=== PATIENT | female | born 2000 | race Caucasian/White ===

== ENCOUNTER 2018-08-12 13:40 | Emergency (ER) | payer MEDICAID ==
[2018-08-12] MEDS ORDERED: NS 1,000 ML IV ONE (14:15)
[2018-08-12] MEDS ORDERED: ONDANSETRON 4 MG/2 ML VIAL IVP ONE (14:15)
--- NOTE | 2018-08-12 14:25 | EDPHY ---
H & P Stated Complaint: Sneezing blood x 1 month, cough and vomiting blood x 1 week Time Seen by Provider: 08/12/18 13:51 HPI/ROS: CHIEF COMPLAINT: Sneezing blood, sinus infections, coughing blood, vomiting blood HISTORY OF PRESENT ILLNESS: 17-year-old female presents emergency department reporting that 2 months ago she had a head injury consisting of a statue which fell and hit her on the forehead. No loss of consciousness. Patient was seen by primary care physician the next day. Since that time she has had issues with ongoing sinus pressure and sinusitis and about a month ago started having frequent episodes of sneezing with blood in it. Patient received 2 rounds of antibiotics, amoxicillin and doxycycline, for sinus infections as well as taking Flonase nasal spray for nasal irritation without any improvement in her facial discomfort. 1 week ago she started running a low-grade fever of 100 associated with cough with bloody sputum and nausea and vomiting blood. She also reports dark stools. No chest pain or shortness of breath. No palpitations. No diarrhea. No urinary complaints. No lightheadedness or dizziness. REVIEW OF SYSTEMS: A comprehensive 10 system review of systems was reviewed and is otherwise negative aside from elements mentioned in the history of present illness and medical decision making. PAST MEDICAL HISTORY: Migraines. SOCIAL HISTORY: Nonsmoker. VITAL SIGNS: see nurse's notes. Hypertensive at 156/93. GENERAL: Well-developed, well-nourished, in no acute distress. Looks well. Alert. Conversant. Does not seem congested. No coughing or sneezing during my examination. HEENT: Atraumatic Eyes: PERRL, EOMI, no conjunctival injection. Ears: TM clear bilaterally. Frontal sinus tenderness to percussion. Nose: No discharge. No dried blood noted. No epistaxis. Mouth: moist mucous membranes. Pharynx: No posterior pharyngeal blood. No erythema, no exudates , no swelling, no abscess. Uvula is midline. NECK: Supple, no adenopathy, no meningismus, no tenderness. Negative Kernig's and Brudzinski's. LUNGS: Clear to auscultation bilaterally, no wheezes, rhonchi or rales. CARDIAC: Regular rate and rhythm, no rubs, murmurs or gallops. ABDOMEN: Soft, mild epigastric discomfort, no guarding or rebound. Normal bowel sounds. RECTAL: No hemorrhoids, nontender, no stool in the vault. Guaiac negative. BACK: Mild bilateral CVA tenderness. EXTREMITIES: Normal, no edema, FROM. NEURO: Alert and oriented, grossly nonfocal. SKIN: Warm and dry, no rash. PSYCHIATRIC: Normal mentation, no agitation. 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 2014? no residual symptoms Constitutional: Initial Vital Signs Temperature (C) 37 C 08/12/18 13:49 Heart Rate 98 08/12/18 13:49 Respiratory Rate 16 08/12/18 13:49 Blood Pressure 156/93 H 08/12/18 13:49 O2 Sat (%) 94 08/12/18 13:49 O2 Delivery Mode Room Air Allergies/Adverse Reactions: diphenhydramine [From Benadryl] Allergy (Verified 08/12/18 13:54) Pt reports "skin is crawling" eletriptan [From Relpax] Allergy (Verified 08/12/18 13:54) Pt reports "stroke" Home Medications: Medication Instructions Recorded Azithromycin [Zithromax] 250 mg PO DAILY #6 tab 08/12/18 Bc Pill 08/12/18 Ondansetron Odt [Zofran Odt 4 mg 4 mg PO Q6 PRN #8 tab 08/12/18 (RX)] Medical Decision Making - Diagnostics Imaging Results: Imaging Impressions Chest X-Ray 08/12/18 14:15 Impression: No acute cardiopulmonary process. Head CT 08/12/18 14:15 Impression: No acute intracranial findings. Findings discussed with Shayna Mcmanus MD 08/12/2018 at 14:44. Imaging: Discussed imaging studies w/ call or contact centre manager Radiologist, I viewed and interpreted images myself ED Course/Re-evaluation: Patient's head CT demonstrates no fractures, no acute sinusitis. Chest x-ray is normal. Stool was guaiac negative. CBC is within normal limits, actually a bit elevated. Electrolytes were remarkable for potassium 2.9. However, this was rechecked on i Stat at 3.5. At this point I believe the patient should follow up with [facility]. I have also asked her to keep track of her fever, begin using Flonase nasal spray again, and use a nonsedating antihistamine to help with sneezing. Please see the discharge instructions for further information. Differential Diagnosis: Differential diagnoses for the patient's symptom complex was considered including but not limited to basilar skull fracture, CSF leak, sinusitis, upper respiratory infection, swallowed blood, hematemesis from infection or bronchitis. - Data Points Laboratory Results: 08/12/18 14:39 POC Sodium 144 mEq/L mEq/L (135-145) POC Potassium 2.9 mEq/L L mEq/L (3.3-5.0) POC Chloride 103.0 mEq/L mEq/L (97-110) POC Total CO2 24 mEq/L mEq/L (22-31) POC BUN 9 mg/dL mg/dL (7-23) POC Creatinine 0.6 mg/dL mg/dL (0.6-1.0) POC Glucose 87 mg/dL mg/dL (70-100) POC Calcium 9.6 mg/dL mg/dL (8.5-10.4) Medications Given: Discontinued Medications Sodium Chloride (Ns) 1,000 mls @ 0 mls/hr IV ONCE ONE; Wide Open PRN Reason: Protocol Stop: 08/12/18 14:16 Last Admin: 08/12/18 14:31 Dose: 1,000 mls Ondansetron HCl (Zofran) 4 mg IVP EDNOW ONE Stop: 08/12/18 14:16 Last Admin: 08/12/18 14:32 Dose: 4 mg Point of Care Test Results: CBC CBC Collection Date 08/12/18 CBC Collection Time 14:21 WBC 7.3 RBC 5.61 HGB 16.4 HCT 46.9 PLT 406 Neut # 4.6 Neut 63.0 LYMPH # 2.3 LYMPH 31.8 Other WBC # 0.4 Other WBC 5.2 MCV 83.6 Chemistry 08/12/18 14:39 POC Sodium 144 mEq/L mEq/L (135-145) POC Potassium 2.9 mEq/L L mEq/L (3.3-5.0) POC Chloride 103.0 mEq/L mEq/L (97-110) POC Total CO2 24 mEq/L mEq/L (22-31) POC BUN 9 mg/dL mg/dL (7-23) POC Creatinine 0.6 mg/dL mg/dL (0.6-1.0) POC Glucose 87 mg/dL mg/dL (70-100) POC Calcium 9.6 mg/dL mg/dL (8.5-10.4) Occult Blood Occult Blood Collection Date 08/12/18 Occult Blood Collection Time 14:15 Occult Blood Result Negative/Negative Departure - Departure Disposition: Home, Routine, Self-Care Clinical Impression: Sneezing, History of hematemesis, History of hemoptysis Condition: Good Instructions: Fluticasone (Into the nose), Hemoptysis (ED), Hematemesis (ED) Additional Instructions: 1. Please obtain Flonase nasal spray and use this as directed for the next week. 2. Please obtain a nonsedating antihistamine like loratadine (claritin) and take this as directed for the next 2 weeks to help with sinus drainage. 3. If you continued to have a significant cough and low-grade fever with a cough productive of greenish discharge or blood, you may begin taking the azithromycin prescription. 4. Please use Tylenol as needed for body aches and fever. 5. Please check your temperature in order to document fevers over 100.1. 6. If you develop recurrent vomiting with blood, please return to the emergency department. I would encourage you to start an yaou-juh-[id number] prescription for Prilosec to help with any gastric irritation from your postnasal drip. 7. Okay to use Zofran as needed for any ongoing nausea. 8. Please follow up with Ear Nose and Throat doctor. You have been given referral to Dr. Raz Conner. [facility] is also a large group in area. Be sure that they are aware that this is an emergency department follow-up visit. Referrals: JESSA WARD [Primary Care Provider] - As per Instructions Raz Conner MD [Medical Doctor] - As per Instructions Prescriptions: Azithromycin [Zithromax] 250 mg PO DAILY #6 tab Ondansetron Odt [Zofran Odt 4 mg (RX)] 4 mg PO Q6 PRN #8 tab PRN Reason: Nausea
[2018-08-12 15:57] VITALS: BP 121/78
== END 2018-08-12 15:47 | disposition home or self-care (01) ==
LOC: CED 13:40
DX: K92.0 Hematemesis (principal); R06.7 Sneezing; R05 Cough; E86.9 Volume depletion, unspecified; Z87.828 Personal history of other (healed) physical injury and trauma
CPT/HCPCS: 70450-PO; 71046-PO; 80048-PO; 82435-PO; 82565-PO; 82947-PO; 84132-PO; 84295-PO; 84520-PO; 85014-PO; 96374; J2405

== ENCOUNTER 2018-10-05 11:15 | Emergency (ER) | payer MEDICAID ==
[2018-10-05] MEDS ORDERED: NS 1,000 ML IV ONE (12:06)
[2018-10-05] MEDS ORDERED: KETOROLAC 15 MG/1 ML SDV IVP ONE (12:07)
[2018-10-05] MEDS ORDERED: ASPIRIN 81 MG CHEWABLE TAB PO ONE (12:07)
[2018-10-05] MEDS ORDERED: AMPICILLIN SODIUM 2 GM in NS 100 ML IV ONE (12:13)
[2018-10-05] MEDS ORDERED: ONDANSETRON 4 MG/2 ML VIAL IVP ONE (12:13)
--- NOTE | 2018-10-05 13:05 | EDPHY ---
H & P Stated Complaint: chest pain,dyspnea for 1 day Time Seen by Provider: 10/05/18 11:41 HPI/ROS: This patient reports abrupt onset of pleuritic chest pain last night with ongoing pleuritic pain since that time 7/10 intensity when she takes deep breath described as substernal in bilateral in location. She has associated mild dyspnea. She also feels slight lightheadedness/dizziness since the onset of symptoms. She reports a deep breath also triggers a dry cough. In addition she reports ongoing UTI symptoms for over a week now. She was initially on Keflex and had ongoing symptoms including some flank pain that persists bilaterally and dysuria. She was switched to Macrobid 2 days ago due to lack of response. I reviewed the urine culture from her initial visit and it is growing enterococcus-60,000 colonies per high-power field. Her mother drove her here by private vehicle for evaluation of the symptoms. She has not taken any analgesics so far this morning. She also complains of associated mild to moderate nausea today. ROS: Constitutional: No recent fevers. No other constitutional symptoms HEENT: No recent Cold symptoms or other complaints Pulmonary: As per HPI. No hemoptysis recently. Cardiovascular: Mild lightheadedness. She also complains of leg pain left more than right over the past couple days. GI: No abdominal pain except for suprapubic discomfort that she has had since the onset of her UTI. : Ongoing dysuria persists. She also describes moderate 5/10 flank pain bilaterally. Integumentary: No skin rash Neuro: No complaints 10 point review of symptoms is performed and otherwise negative with exception of pertinent positives and negatives listed in HPI and ROS Source: Patient Exam Limitations: No limitations - Personal History LMP (Females 10-55): 22-28 Days Ago Current Tetanus Diphtheria and Acellular Pertussis (TDAP): Yes Tetanus Vaccine Date: within 10 years - Medical/Surgical History Hx Asthma: No Hx Chronic Respiratory Disease: No Hx Diabetes: No Hx Cardiac Disease: No Hx Renal Disease: No Hx Cirrhosis: No Hx Alcoholism: No Hx HIV/AIDS: No Hx Splenectomy or Spleen Trauma: No Other PMH: Concussion, migraines, stroke from rxn to relpax 2013? no residual symptoms, UTI's - Family History Significant Family History: No pertinent family hx - Social History Smoking Status: Former smoker Alcohol Use: Rarely Drug Use: None - Physical Exam Exam: General Appearance: Pleasant 18-year-old female Alert, no distress. Eyes: Pupils equal and round no pallor or injection. ENT, Mouth: Mucous membranes moist. Respiratory: Faint expiratory wheeze only notable when she coughs. Cardiovascular: Regular rate and rhythm. No murmur gallop rub. The patient has left calf tenderness and a positive Homans exam. Gastrointestinal: Mild suprapubic tenderness with no guarding or rebound Neurological: GCS 15 with no focal deficits. Skin: Warm and dry, no rashes. Musculoskeletal: Neck is supple nontender. Extremities are symmetrical, full range of motion. Psychiatric: Mood and affect normal DIFFERENTIAL DIAGNOSIS: After history and physical exam differential diagnosis was considered for PE, DVT, bronchitis, pleurisy, pericarditis, pyelonephritis Constitutional: Initial Vital Signs Temperature (C) 36.7 C 10/05/18 11:31 Heart Rate 106 H 10/05/18 11:31 Respiratory Rate 16 10/05/18 11:31 Blood Pressure 145/95 H 10/05/18 11:31 O2 Sat (%) 94 10/05/18 11:31 O2 Delivery Mode Room Air O2 (L/minute) 2 Allergies/Adverse Reactions: diphenhydramine [From Benadryl] Allergy (Verified 10/05/18 11:30) Pt reports "skin is crawling" eletriptan [From Relpax] Allergy (Verified 10/05/18 11:30) Pt reports "stroke" Home Medications: Medication Instructions Recorded Bc Pill 08/12/18 Ondansetron Odt [Zofran Odt 4 mg 4 mg PO Q6 PRN #8 tab 08/12/18 (RX)] Albuterol Hfa Anes Only [Proair 2 puffs IH Q4 PRN #1 mdi 10/05/18 Hfa Icu (*)] Ondansetron Odt [Zofran Odt] 4 - 8 mg PO Q4PRN PRN #4 tab 10/05/18 Medical Decision Making - Diagnostics EKG Interpretation: 12 lead EKG performed shortly after arrival indication chest pain rule out right heart strain or other abnormalities Performed at 11:47 a.m. Sinus rhythm at 82 Intervals: Normal throughout [place]: Normal throughout Overall assessment: Normal EKG Imaging Results: Imaging Impressions Chest X-Ray 10/05/18 12:26 Impression: Normal chest. Extremity Venous Study 10/05/18 13:00 Impression: No deep venous thrombosis left leg. Results called to Dr. Vinny Crane at 3:00 PM Two view chest x-ray is normal by my interpretation Imaging: I viewed and interpreted images myself ED Course/Re-evaluation: IV normal saline bolus Aspirin p. O. Toradol IV Given positive enterococcus culture treated with IV ampicillin Review of labs reveals normal CBC and basic metabolic panel. D-dimer is 317. Urinalysis reveals trace positive leuks on POC testing. In considering pretest probability this patient on oral contraceptives with left leg tenderness positive Homans will proceed with Doppler ultrasound for further evaluation. Doppler ultrasound lower extremities negative Discussion: This patient's presentation is most consistent with URI versus mild bronchitis with dry cough and chest wall tenderness. Given the risk factor of control pills we pursued a workup. She also had mild dyspnea. Her pain improved with NSAIDs here. Treated her with a dose of ampicillin due to CVA tenderness and ongoing UTI. She will continue her Macrobid antibiotic and follow up with primary care physician with plan to use NSAIDs for chest wall pain albuterol inhaler for cough if needed. She understands need to return to the emergency department should she develop worsening symptoms despite the treatment plan. - Data Points Laboratory Results: 10/05/18 12:06 POC Sodium 140 mEq/L mEq/L (135-145) POC Potassium 4.1 mEq/L mEq/L (3.3-5.0) POC Chloride 106.0 mEq/L mEq/L (97-110) POC Total CO2 25 mEq/L mEq/L (22-31) POC BUN 6 mg/dL L mg/dL (7-23) POC Creatinine 1.0 mg/dL mg/dL (0.6-1.0) POC Glucose 119 mg/dL H mg/dL (70-100) POC Calcium 9.2 mg/dL mg/dL (8.5-10.4) Medications Given: Discontinued Medications Aspirin (Aspirin) 324 mg PO EDNOW ONE Stop: 10/05/18 12:08 Last Admin: 10/05/18 12:18 Dose: 324 mg Sodium Chloride (Ns) 1,000 mls @ 0 mls/hr IV ONCE ONE; Wide Open PRN Reason: Protocol Stop: 10/05/18 12:07 Last Admin: 10/05/18 12:14 Dose: 1,000 mls Ampicillin Sodium 2 gm/ Sodium (Chloride) 110 mls @ 220 mls/hr IV EDNOW ONE PRN Reason: Protocol Stop: 10/05/18 12:42 Last Admin: 10/05/18 12:34 Dose: 110 mls Ketorolac Tromethamine (Toradol) 15 mg IVP EDNOW ONE Stop: 10/05/18 12:08 Last Admin: 10/05/18 12:21 Dose: 15 mg Ondansetron HCl (Zofran) 4 mg IVP EDNOW ONE Stop: 10/05/18 12:14 Last Admin: 10/05/18 12:19 Dose: 4 mg Point of Care Test Results: CBC CBC Collection Date 10/05/18 CBC Collection Time 12:00 WBC 5.5 RBC 5.28 HGB 15.6 HCT 44.4 PLT 310 Neut # 3.4 Neut 61.5 LYMPH # 1.5 LYMPH 27.6 Other WBC # 0.6 Other WBC 10.9 MCV 84.1 Chemistry 10/05/18 12:06 POC Sodium 140 mEq/L mEq/L (135-145) POC Potassium 4.1 mEq/L mEq/L (3.3-5.0) POC Chloride 106.0 mEq/L mEq/L (97-110) POC Total CO2 25 mEq/L mEq/L (22-31) POC BUN 6 mg/dL L mg/dL (7-23) POC Creatinine 1.0 mg/dL mg/dL (0.6-1.0) POC Glucose 119 mg/dL H mg/dL (70-100) POC Calcium 9.2 mg/dL mg/dL (8.5-10.4) D-Dimer D-Dimer Collection Date 10/05/18 D-Dimer Collection Time 12:00 D-Dimer (ng/ml) 317 Urine Collection Date 10/05/18 Collection Time 12:20 HCG Results Negative Urine Dip Collection Date 10/05/18 Collection Time 12:45 Specific [place] (1.002-1.030) 1.025 PH (5.0-7.5) 6.0 Leukocytes (Negative) Trace Nitrites (Negative) Negative Protein (Negative) Negative Glucose (Negative) Negative Ketones (Negative) Trace Urobilnogen (0.2-1.0 EU) 0.2 Bilirubin (Negative) Negative Blood (Negative) Negative Departure - Departure Disposition: Home, Routine, Self-Care Clinical Impression: Chest wall pain, Leg pain, left Dyspnea Qualifiers: Dyspnea type: unspecified Qualified Code(s): R06.00 - Dyspnea, unspecified Urinary tract infection Qualifiers: Urinary tract infection type: site unspecified Hematuria presence: without hematuria Qualified Code(s): N39.0 - Urinary tract infection, site not specified Condition: Good Instructions: Chest Pain (ED) Additional Instructions: Diagnosis: 1. Chest wall pain 2. UTI 3. Nausea 4 dyspnea Plan: Humidifier Albuterol inhaler for cough, wheeze or shortness of breath Ibuprofen Tylenol for pain Continue incomplete you're Macrobid antibiotic course Follow up with primary care physician for any ongoing symptoms Return for any significant worsening despite the treatment plan Referrals: JESSA WARD [Primary Care Provider] - As per Instructions Prescriptions: Albuterol Hfa Anes Only [Proair Hfa Icu (*)] 2 puffs IH Q4 PRN #1 mdi PRN Reason: Wheezing Ondansetron Odt [Zofran Odt] 4 - 8 mg PO Q4PRN PRN #4 tab PRN Reason: Vomiting
[2018-10-05 16:04] VITALS: BP 124/72
--- NOTE | 2018-10-05 22:22 | CPEKG ---
Test Reason : OPEN Blood Pressure : / mmHG Vent. Rate : 082 BPM Atrial Rate : 081 BPM P-R Int : 173 ms QRS Dur : 083 ms QT Int : 361 ms P-R-T Axes : 073 047 046 degrees QTc Int : 422 ms Sinus rhythm Confirmed by Linh Lovell ([id number]) on 10/05/2018 10:22:05 PM Referred By: Confirmed By:Linh Lovell
== END 2018-10-05 15:26 | disposition home or self-care (01) ==
LOC: CED 11:15
DX: R07.89 Other chest pain (principal); N39.0 Urinary tract infection, site not specified; B95.2 Enterococcus as the cause of diseases classified elsewhere; M79.605 Pain in left leg; R06.00 Dyspnea, unspecified
CPT/HCPCS: 71046-PO; 80048-ER; 93971-PO; 96374-ER; 96375-ER; J0290; J1885; J2405